=== PATIENT | female | born 1995 | race Caucasian/White ===

== ENCOUNTER → 2019-10-14 13:31 | Outpatient (BNVA) | payer MEDICAID, SELFPAY | PROVIDERS: Visit Provider Obstetrics & Gynecology | DX: Z32.01 Encounter for pregnancy test, result positive (principal) | CPT/HCPCS: 81025 ==

== ENCOUNTER → 2019-10-16 13:53 | Outpatient (BNVA) | payer MEDICAID, SELFPAY | PROVIDERS: Referring Provider Obstetrics & Gynecology; Visit Provider Obstetrics & Gynecology | DX: Z32.01 Encounter for pregnancy test, result positive (principal) | CPT/HCPCS: 84702 ==

== ENCOUNTER → 2019-10-21 14:28 | Outpatient (BNVA) | payer MEDICAID, SELFPAY | PROVIDERS: Referring Provider Obstetrics & Gynecology; Visit Provider Obstetrics & Gynecology | DX: Z34.01 Encounter for supervision of normal first pregnancy, first trimester (principal) | CPT/HCPCS: 76817 ==

== ENCOUNTER → 2019-11-07 10:26 | Outpatient (BNVA) | payer MEDICAID, SELFPAY | PROVIDERS: Visit Provider Nurse Practitioner Women's Health | DX: O99.211 Obesity complicating pregnancy, first trimester (principal); Z78.9 Other specified health status; Z3A.08 8 weeks gestation of pregnancy | CPT/HCPCS: 81003 ==

== ENCOUNTER → 2019-11-13 10:41 | Outpatient (BNVA) | payer MEDICAID, SELFPAY | PROVIDERS: Referring Provider Obstetrics & Gynecology; Visit Provider Obstetrics & Gynecology | DX: N39.0 Urinary tract infection, site not specified (principal) | CPT/HCPCS: 81003; 87086 ==

== ENCOUNTER → 2019-11-17 12:59 | Outpatient (BNVA) | payer MEDICAID, SELFPAY | PROVIDERS: Visit Provider Obstetrics & Gynecology | DX: O99.210 Obesity complicating pregnancy, unspecified trimester (principal) | CPT/HCPCS: 80307; 81003; 82950; 85027; 86592; 86762; 86803; 86850; 86900; 87086; 87340; 87806 ==

== ENCOUNTER → 2019-11-21 08:13 | Outpatient (BNVA) | payer MEDICAID, SELFPAY | PROVIDERS: Referring Provider Obstetrics & Gynecology; Visit Provider Obstetrics & Gynecology | DX: R73.09 Other abnormal glucose (principal) | CPT/HCPCS: 82951; 82952 ==

== ENCOUNTER → 2019-12-05 08:37 | Outpatient (BNVA) | payer MEDICAID, SELFPAY | PROVIDERS: Visit Provider Obstetrics & Gynecology | DX: O23.591 Infection of other part of genital tract in pregnancy, first trimester (principal); B96.89 Other specified bacterial agents as the cause of diseases classified elsewhere; Z3A.12 12 weeks gestation of pregnancy | CPT/HCPCS: 81000; 87491; 87591 ==

== ENCOUNTER → 2019-12-10 14:00 | Outpatient (BNVA) | payer MEDICAID, SELFPAY | PROVIDERS: Visit Provider Obstetrics & Gynecology | DX: A53.0 Latent syphilis, unspecified as early or late (principal) | CPT/HCPCS: 86592 ==

== ENCOUNTER → 2019-12-30 10:20 | Outpatient (BNVA) | payer MEDICAID, SELFPAY | PROVIDERS: Visit Provider Obstetrics & Gynecology | DX: O99.612 Diseases of the digestive system complicating pregnancy, second trimester | CPT/HCPCS: 81000 ==

== ENCOUNTER → 2020-01-14 13:35 | Outpatient (BNVA) | payer MEDICAID, SELFPAY | PROVIDERS: Visit Provider Obstetrics & Gynecology | DX: Z34.90 Encounter for supervision of normal pregnancy, unspecified, unspecified trimester (principal) | CPT/HCPCS: 80053; 81000 ==

== ENCOUNTER → 2020-01-29 10:56 | Outpatient (BNVA) | payer MEDICAID, SELFPAY | PROVIDERS: PCP Registered Nurse; Visit Provider Obstetrics & Gynecology | DX: Z36.89 Encounter for other specified antenatal screening (principal) | CPT/HCPCS: 76805 ==

== ENCOUNTER → 2020-02-06 08:32 | Outpatient (BNVA) | payer MEDICAID, SELFPAY | PROVIDERS: PCP Registered Nurse; Visit Provider Obstetrics & Gynecology | DX: Z34.90 Encounter for supervision of normal pregnancy, unspecified, unspecified trimester (principal) | CPT/HCPCS: 81000 ==

== ENCOUNTER → 2020-02-24 11:13 | Outpatient (BNVA) | payer MEDICAID, SELFPAY | PROVIDERS: PCP Registered Nurse; Visit Provider Obstetrics & Gynecology | DX: R10.2 Pelvic and perineal pain (principal) | CPT/HCPCS: 80053; 81000 ==

== ENCOUNTER → 2020-02-26 10:31 | Outpatient (BNVA) | payer MEDICAID, SELFPAY | PROVIDERS: PCP Registered Nurse; Visit Provider Obstetrics & Gynecology | DX: Z34.82 Encounter for supervision of other normal pregnancy, second trimester (principal) | CPT/HCPCS: 81000 ==

== ENCOUNTER → 2020-03-31 08:09 | Outpatient (BNVA) | payer MEDICAID, SELFPAY | PROVIDERS: PCP Registered Nurse; Visit Provider Obstetrics & Gynecology | DX: O26.891 Other specified pregnancy related conditions, first trimester (principal); Z67.91 Unspecified blood type, Rh negative; A53.0 Latent syphilis, unspecified as early or late; R73.09 Other abnormal glucose | CPT/HCPCS: 81000; 82951; 82952; 86592; 86780; 86850 ==

== ENCOUNTER → 2020-04-13 15:30 | Outpatient (BNVA) | payer MEDICAID, SELFPAY | PROVIDERS: PCP Registered Nurse; Visit Provider Nurse Practitioner Women's Health | DX: O99.519 Diseases of the respiratory system complicating pregnancy, unspecified trimester (principal); J45.909 Unspecified asthma, uncomplicated; O26.891 Other specified pregnancy related conditions, first trimester; Z67.91 Unspecified blood type, Rh negative; A53.0 Latent syphilis, unspecified as early or late; O99.213 Obesity complicating pregnancy, third trimester; Z3A.31 31 weeks gestation of pregnancy | CPT/HCPCS: 81000; 85027 ==

== ENCOUNTER 2020-04-23 15:08 | Outpatient (CLI) | payer MEDICAID, SELFPAY ==
[2020-04-23 15:22] VITALS: BP 125/73; PULSE 81
[2020-04-23 15:29] VITALS: RESP 16; TEMP 36.7
[2020-04-23 15:30] VITALS: BMI 36.8
[2020-04-23 16:29] VITALS: BP 129/70; PULSE 80
[2020-04-23 16:55] VITALS: BP 129/70; PULSE 80
== END 2020-04-23 16:55 | disposition home or self-care (01) ==
LOC: OPOB 15:14 → OBGYN 15:14
PROVIDERS: PCP Registered Nurse; Visit Provider Obstetrics & Gynecology
DX: O26.893 Other specified pregnancy related conditions, third trimester (principal); Z3A.32 32 weeks gestation of pregnancy; R10.2 Pelvic and perineal pain
CPT/HCPCS: 59025; 81000; 99211

== ENCOUNTER 2020-04-27 12:40 | Outpatient (CLI) | payer MEDICAID, SELFPAY ==
[2020-04-27 12:40] VITALS: BMI 35.9
[2020-04-27 13:00] VITALS: BP 114/65; PULSE 81
[2020-04-27 13:20] VITALS: RESP 18; TEMP 36.7
[2020-04-27 13:30] VITALS: BP 0/0
[2020-04-27 13:31] VITALS: BP 92/77; PULSE 91
[2020-04-27 14:30] VITALS: BP 110/71; PULSE 88
[2020-04-27 15:00] VITALS: BP 99/75; PULSE 86
--- NOTE | 2020-04-27 15:19 | P.PCN_ITS ---
Procedure/Consent Procedure Narrative: [place]STRESS TEST: [place] [facility] [place] Indication: 25-year-old 4 para 3-0-0-3 at 33 weeks and 0 days, abdominal pain Date and time of test: 04/27/2020, 2:40 PM Baseline: 135 Variability: Moderate Accelerations: Accelerations present Decelerations: No decelerations Tocometry: No contractions INTERPRETATION: NST reactive, continue kick counts
== END 2020-04-27 15:15 | disposition home or self-care (01) ==
LOC: OPOB 12:50 → OBGYN 12:51
PROVIDERS: PCP Registered Nurse; Visit Provider Obstetrics & Gynecology
DX: O26.893 Other specified pregnancy related conditions, third trimester (principal); Z3A.33 33 weeks gestation of pregnancy; R10.9 Unspecified abdominal pain
CPT/HCPCS: 12345; 59025; 99211

== ENCOUNTER 2020-04-30 11:55 | Outpatient (CLI) | payer MEDICAID, SELFPAY ==
[2020-04-30 12:00] VITALS: BMI 37.0
[2020-04-30 12:40] VITALS: BMI 35.9
[2020-04-30 12:47] VITALS: BP 119/70; PULSE 90
[2020-04-30 13:17] VITALS: BP 90/46; PULSE 83
--- NOTE | 2020-04-30 13:40 | PC.NURSE ---
1340 PT STATES AND LOOKS LIKE SHE FEELS BETTER.
[2020-04-30 14:07] VITALS: BP 107/76; PULSE 93
[2020-04-30 15:00] VITALS: BP 107/76; PULSE 93
== END 2020-04-30 14:05 | disposition home or self-care (01) ==
LOC: OPOB 12:01 → OBGYN 12:02
PROVIDERS: PCP Registered Nurse; Visit Provider Obstetrics & Gynecology
DX: O26.893 Other specified pregnancy related conditions, third trimester (principal); Z3A.33 33 weeks gestation of pregnancy; R10.9 Unspecified abdominal pain
CPT/HCPCS: 99211

== ENCOUNTER → 2020-05-07 14:27 | Outpatient (BNVA) | payer MEDICAID, SELFPAY | PROVIDERS: PCP Registered Nurse; Visit Provider Obstetrics & Gynecology | DX: O99.213 Obesity complicating pregnancy, third trimester; O09.893 Supervision of other high risk pregnancies, third trimester; Z67.91 Unspecified blood type, Rh negative; Z3A.34 34 weeks gestation of pregnancy; J45.909 Unspecified asthma, uncomplicated; O09.213 Supervision of pregnancy with history of pre-term labor, third trimester | CPT/HCPCS: 81000 ==

== ENCOUNTER 2020-05-09 16:10 | Outpatient (CLI) | payer MEDICAID, SELFPAY ==
[2020-05-09] VITALS (9 sets, daily range): BP systolic 0–143; BP diastolic 0–81; PULSE 88–100; RESP 18; TEMP 36.9–37.1; BMI 37.5
--- NOTE | 2020-05-09 17:14 | US_ITS ---
WS: [id number] BIOPHYSICAL PROFILE HISTORY: decreased movement COMPARISON: 01/29/2020 Cardiac activity: 138 bpm. Cervix: Not visualized. Placenta: Anterior, no previa or abruption. Placenta grade: 1 Parameters are as follows: Breathin Movement: 2 Tone: 2 Fluid volume: 2 Largest vertical pocket of amniotic fluid 4.7 cm. US/US OB BPP wo NST 24451 IMPRESSION: 1. Biophysical profile score: 8/8. 2. Largest vertical pocket of amniotic fluid 4.7 cm.
[2020-05-09 17:38] LABS: Actim Prom Negative
== END 2020-05-09 18:38 | disposition home or self-care (01) ==
LOC: OPOB 16:27 → OBGYN 16:28
PROVIDERS: PCP Registered Nurse; Visit Provider Obstetrics & Gynecology
DX: O26.899 Other specified pregnancy related conditions, unspecified trimester (principal); Z3A.00 Weeks of gestation of pregnancy not specified; O36.8190 Decreased fetal movements, unspecified trimester, not applicable or unspecified
CPT/HCPCS: 59025; 76819; 83986; 84112; 99211

== ENCOUNTER → 2020-05-21 15:04 | Outpatient (BNVA) | payer MEDICAID, SELFPAY | PROVIDERS: PCP Registered Nurse; Visit Provider Obstetrics & Gynecology | DX: O99.213 Obesity complicating pregnancy, third trimester (principal); O09.893 Supervision of other high risk pregnancies, third trimester; Z67.91 Unspecified blood type, Rh negative; Z3A.36 36 weeks gestation of pregnancy | CPT/HCPCS: 81000; 87081 ==

== ENCOUNTER → 2020-05-28 14:22 | Outpatient (BNVA) | payer MEDICAID, SELFPAY | PROVIDERS: PCP Registered Nurse; Visit Provider Obstetrics & Gynecology | DX: Z34.83 Encounter for supervision of other normal pregnancy, third trimester (principal) | CPT/HCPCS: 81000 ==

== ENCOUNTER → 2020-05-31 15:12 | Outpatient (BNVA) | payer MEDICAID, SELFPAY | PROVIDERS: PCP Registered Nurse; Visit Provider Registered Nurse | DX: R09.82 Postnasal drip (principal); J02.9 Acute pharyngitis, unspecified | CPT/HCPCS: 87880 ==

== ENCOUNTER → 2020-06-02 14:54 | Outpatient (BNVA) | payer MEDICAID, SELFPAY | PROVIDERS: PCP Registered Nurse; Visit Provider Obstetrics & Gynecology | DX: Z34.83 Encounter for supervision of other normal pregnancy, third trimester (principal) | CPT/HCPCS: 80053; 81000 ==

== ENCOUNTER 2020-06-05 17:30 | Outpatient (CLI) | payer MEDICAID, SELFPAY ==
[2020-06-05 17:55] VITALS: BP 138/81; PULSE 100
[2020-06-05 17:56] VITALS: TEMP 36.6
[2020-06-05 18:14] VITALS: BP 0/0
[2020-06-05 18:15] VITALS: BP 137/80; PULSE 93
[2020-06-05 18:17] VITALS: BMI 36.9
[2020-06-05 18:43] LABS: Nitrazine Paper, PH Negative
== END 2020-06-05 18:28 | disposition home or self-care (01) ==
LOC: OPOB 17:47 → OBGYN 18:25
PROVIDERS: PCP Registered Nurse; Visit Provider Obstetrics & Gynecology
DX: O26.899 Other specified pregnancy related conditions, unspecified trimester (principal); Z3A.00 Weeks of gestation of pregnancy not specified; N89.8 Other specified noninflammatory disorders of vagina
CPT/HCPCS: 59025; 83986; 99211

== ENCOUNTER → 2020-06-11 14:13 | Outpatient (BNVA) | payer MEDICAID, SELFPAY | PROVIDERS: PCP Registered Nurse; Visit Provider Obstetrics & Gynecology | DX: Z34.83 Encounter for supervision of other normal pregnancy, third trimester (principal) | CPT/HCPCS: 81000; 87635 ==

== ENCOUNTER 2020-06-13 11:36 | Inpatient (IN) | payer MEDICAID, SELFPAY ==
[2020-06-13] VITALS (59 sets, daily range): BP systolic 0–154; BP diastolic 0–92; PULSE 63–127; RESP 14–20; TEMP 36.6–37; O2SAT 97–100; BMI 38.3
[2020-06-13] MEDS: lactated ringers 1,000 ML 999 ML IV ×2 (12:42→13:46)
[2020-06-13 12:53] LABS: Basophils % 0.4 %; Eosinophils # 0.1 10^3/uL (0.0-0.8); Eosinophils % 0.8 %; Hematocrit 41.1 % (37.0-47.0); Hemoglobin 13.8 g/dL (11.5-15.3); Lymphocytes # 2.7 10^3/uL (0.8-4.8); Lymphocytes % 26.4 %; Mean Corpuscular HGB Conc 33.6 g/dL (30.0-36.0); Mean Corpuscular Hemoglobin 26.7 pg (28.0-34.0); Mean Corpuscular Volume 79.7 fL (81-99); Mean Platelet Volume 11.3 fL (7.4-10.4); Monocytes # 0.8 10^3/uL (0.2-0.9); Monocytes % 8.1 %; Neutrophils # 6.54 10^3/uL (1.8-7.7); Neutrophils % 63.9 %; Nucleated Red Blood Cells % 0 %; Platelet Count 267 10^3/cmm (130-400); Red Blood Count 5.16 10^6/uL (4.1-5.3); Red Cell Distribution Width 13.7 % (12.1-15.1); White Blood Count 10.2 10^3/uL (4.0-10.0)
--- NOTE | 2020-06-13 14:00 | P.ANESASSM_ITS ---
Pre-Anesthetic Assessment Pre-Anesthetic Assessment: Height/Weight: Height 1.65 m Weight 104.556 kg Pulse BP Pulse Ox 93 125/73 98 06/13/20 13:55 06/13/20 13:55 06/13/20 13:56 Preop Diagnosis: IUP labor pain Proposed Procedure: HAILEY Was Beta Autumn taken within 24 hours: N/A Last Intake: 11:00 Social: Social History: No alcohol and No tobacco Exam: Pre-Anes Outpt Exam: alert, oriented x 3, clear to auscultation bilaterally and regular rate & rhythm Airway: Submandibular: WNL Cervical ROM: WNL MP: 2 Dentition: Full History/ROS: No significant history except as noted and No significant complaints Pulmonary: Pulmonary: Asthma Comments: Not with CV/HEM: CV/HEM: None reported : : None reported Hepatic: Hepatic: None reported GI: GI: GERD Comments: Takes Zantac-controlled Metabolic: Metabolic: None reported Musc/skel: Musc/skel: None reported Neuropsych: Neuropsych: None reported Anesthetic Plan: ASA status: 2 Anesthesia: Regional (specify below) Other: HAILEY Risk of > 500 ml blood loss (7ml/kg in children): No Meds/Allergies Current Medications: Current Medications Generic Name Dose Route Start Last Admin Trade Name Freq PRN Reason Stop Dose Admin Lactated Ringer's 1,000 mls @ 999 m ls/hr 06/13/20 12:10 06/13/20 13:46 Lactated Ringers IV 999 mls/hr .Q1H1M PRN Administration Per L&D Rescitati on Protocol [facility] Anesthesia PFSH: Medical History Blood type B- History of hiatal hernia Obesity Oligomenorrhea Surgical History No pertinent past surgical history Family History Mother Cancer, Onset Age: 38 Uterine cancer Grandmother Cancer Maternal grandmother-- uterine cancer Grandfather Diabetes Maternal grandfather Hypertension Maternal grandfather Social History (Updated 06/02/20 @ 18:20 by Sinan Montes MD) Smoking and tobacco status: never smoked Alcohol intake: former Former alcohol use details: Social before Other details last substance use: Denies drug use Female Reproductive History: : 5 Data Anesthesia CBC & Chem 7: 06/13/20 12:28 Other Labs: Laboratory Results - last 48 hr 06/13/20 12:28 WBC 10.2 H RBC 5.16 Hgb 13.8 Hct 41.1 MCV 79.7 L MCH 26.7 L MCHC 33.6 RDW 13.7 Plt Count 267 MPV 11.3 H Neut % (Auto) 63.9 Lymph % (Auto) 26.4 [place] % (Auto) 8.1 Eos % (Auto) 0.8 Baso % (Auto) 0.4 Neut # (Auto) 6.54 Lymph # (Auto) 2.7 [place] # (Auto) 0.8 Eos # (Auto) 0.1 Baso # (Auto) 0.0 Nucleated RBC % (auto) 0 Nucleated RBCs # 0.0 Cardiac Studies: No Data to Display
--- NOTE | 2020-06-13 14:04 | P.ANES_ITS ---
Anesthesia Procedures Procedure/Date: 06/13/20 Epidural: Time Out Performed: Yes Consents Signed: Procedure Consent Consent: requested by attending/covering physician and from patient Lumbar Level: L3-L4 Epidural position: sitting Epidural procedure: sterile prep of area, 1% lidocaine to numb the area, 18 g needle, neg for paresthesia, test d ose given, 1.5% xylocaine 1:200k epi, 0.2% Ropivacaine bolus ml, placed PCEA, no systemic response, sterile dressing applied, L.U.D. no apparent complications and 0.2% Ropiavacaine @ mls/hr Additional Comments: SNEHA at 7 cm. Ropiv 0.2% 6 cc and Fentanyl 100 mcg bolus. comfortable. Ropiv 0.2% started at 13 cc/hour. Pt annie well
--- NOTE | 2020-06-13 17:32 | P.PCNOB_ITS ---
Delivery Note: Date of delivery: June 13, 2020 - PRE-DELIVERY DIAGNOSIS: 25-year-old 4 para 3-0-0-3 at 39 weeks and 5 days gestation Active labor GBS negative Obesity Rh- Asthma-mild intermittent POST-DELIVERY DIAGNOSIS: Vaginal delivery on 06/13/2020 PROCEDURE: Vaginal delivery on 06/13/2020 ANESTHESIA: Epidural anesthesia DELIVERING PHYSICIAN: Jared Andino FACOG PRE-DELIVERY COURSE: Ms. Torrez is a 25-year-old 4 para 3-0-0-3 at 39 weeks and 5 days gestation who presented to labor and delivery with questionable leaking of fluid and irregular contractions. Upon evaluation in labor and delivery nitrazine was negative and she was noted to be intact membranes however was 6 cm 80% and -2 station. tracing was category 1 and she had contractions every 6 to 10 minutes. Given that she was full-term with advanced cervical dilation decision was made to admit her in labor. She was uncomfortable and epidural was placed. After the epidural she was noted to be 7 to 8 cm, 80% and -2 station with the head well applied applied. Artificial rupture of membranes was performed with clear fluid at 2:37 PM. She made appropriate cervical change and was fully dilated at 4:45 PM. She was uncomfortable and ready to push. tracing category 1 thus far. DELIVERY NOTE: She was set up in lithotomy position and was pushing effectively. She was noted to be +3 station and continued pushing well. The head delivered in UZIEL position, no nuchal cord was present. The shoulders and rest of the body followed with her next push. The baby's mouth and nose were suctioned and the baby was placed on the mother's belly. Once cord pulsations stopped the cord was clamped and cut. The placenta delivered spontaneously intact with membranes and was discarded. The fundus was noted to be firm and well contracted. The vagina and cervix were inspected and no cervical or sulcal lacerations were noted. The perineum was intact except for a small right labial abrasion which was hemostatic and not repaired. Baby girl, Kristine born at 5:02 PM on 06/13/2020 with 9/9, weighing 7 pounds 15 ounces, 3600 g, 19-3/4 inches long. Placenta was delivered spontaneously intact with membranes at 5:06 PM. Cotyledons were intact , centrally inserted umbilical cord with 3 vessels noted. Estimated blood loss 150 mL. Complications-none, both baby and mother were left to recovery in a stable condition. Coding Level of Care Code Acute Jockey Room Custodian for Paulina Goodman
[2020-06-13] MEDS: lanolin oint 7 gm 1 APPLIC TOPICAL (20:02)
[2020-06-13] MEDS: docusate sodium 100 mg Capsule PO (20:03)
[2020-06-13] MEDS: ibuprofen 800 mg tablet PO (20:03)
[2020-06-13] MEDS: benzocaine-menthol 78 gm Canister 1 SPRAY TOPICAL (20:04)
[2020-06-14 01:10] VITALS: BP 129/72; PULSE 72; RESP 14; O2SAT 98
[2020-06-14 03:30] VITALS: BP 121/76; PULSE 87; RESP 16; TEMP 36.8; O2SAT 98
[2020-06-14 05:36] LABS: Hematocrit 39.4 % (37.0-47.0); Hemoglobin 12.7 g/dL (11.5-15.3); Mean Corpuscular HGB Conc 32.2 g/dL (30.0-36.0); Mean Corpuscular Hemoglobin 26.7 pg (28.0-34.0); Mean Corpuscular Volume 82.9 fL (81-99); Platelet Count 195 10^3/cmm (130-400); Red Blood Count 4.75 10^6/uL (4.1-5.3); Red Cell Distribution Width 13.8 % (12.1-15.1); White Blood Count 12.2 10^3/uL (4.0-10.0)
--- NOTE | 2020-06-14 08:21 | P.DS_ITS ---
Discharge Providers Date of Admission: 06/13/20 11:36 Date of Discharge: June 14, 2020 Attending Provider at Admission: Jared Triana MD Attending Provider at Discharge: Jared Triana MD Primary Care Provider: TYSHAWN Villagran Reason for Visit Reason for Visit: Abdominal pain Hospital Course Discharge Summary: PRE-DELIVERY DIAGNOSIS: 25-year-old 4 para 3-0-0-3 at 39 weeks and 5 days gestation Active labor GBS negative Obesity Rh- Asthma-mild intermittent POST-DELIVERY DIAGNOSIS: Vaginal delivery on 06/13/2020 PROCEDURE: Vaginal delivery on 06/13/2020 ANESTHESIA: Epidural anesthesia DELIVERING PHYSICIAN: Jared Andino FACOG PRE-DELIVERY COURSE: Ms. Torrez is a 25-year-old 4 para 3-0-0-3 at 39 weeks and 5 days gestation who presented to labor and delivery with questionable leaking of fluid and irregular contractions. Upon evaluation in labor and delivery nitrazine was negative and she was noted to be intact membranes however was 6 cm 80% and -2 station. tracing was category 1 and she had contractions every 6 to 10 minutes. Given that she was full-term with advanced cervical dilation decision was made to admit her in labor. She was uncomfortable and epidural was placed. After the epidural she was noted to be 7 to 8 cm, 80% and -2 station with the head well applied applied. Artificial rupture of membranes was performed with clear fluid at 2:37 PM. She made appropriate cervical change and was fully dilated at 4:45 PM. She was uncomfortable and ready to push. tracing category 1 thus far. DELIVERY NOTE: She was set up in lithotomy position and was pushing effectively. She was noted to be +3 station and continued pushing well. The head delivered in UZIEL posit ion, no nuchal cord was present. The shoulders and rest of the body followed with her next push. The baby's mouth and nose were suctioned and the baby was placed on the mother's belly. Once cord pulsations stopped the cord was clamped and cut. The placenta delivered spontaneously intact with membranes and was discarded. The fundus was noted to be firm and well contracted. The vagina and cervix were inspected and no cervical or sulcal lacerations were noted. The perineum was intact except for a small right labial abrasion which was hemostatic and not repaired. Baby girl, Kristine born at 5:02 PM on 06/13/2020 with 9/9, weighing 7 pounds 15 ounces, 3600 g, 19-3/4 inches long. Placenta was delivered spontaneously intact with membranes at 5:06 PM. Cotyledons were intact , centrally inserted umbilical cord with 3 vessels noted. Estimated blood loss 150 mL. Complications-none, both baby and mother were left to recovery in a stable condition. HOSPITAL COURSE: She underwent an uncomplicated vaginal delivery on 06/13/2020. She did well on day 0 and was ambulating well, tolerating regular diet, voiding freely, passing flatus. She was breast-feeding without difficulty and bonding well with her daughter. Pain was well-controlled with by mouth pain medication. She denied nausea, vomiting, fever, chills, shortness of breath, leg pain. She had moderate vaginal bleeding. On day #1 she continued to do well with stable vital signs and stable hemoglobin at 12.7. She was discharged home on day 1 in a stable condition, as she desired early discharge. W arning signs for endometritis, mastitis, DVT/PE were reviewed with her. Post delivery activity restrictions were also reviewed with her at all her questions were answered to her satisfaction. Plans on using natural methods of contraception at this time. EXAM AT DISCHARGE: Gen.: No acute distress Heart: S1-S2 heard, regular rate and rhythm Lungs: Clear to auscultation bilaterally Abdomen: Soft, fundus firm below umbilicus, Legs: No calf tenderness, trace bilateral pitting pedal edema. CONDITION AT DISCHARGE: Stable Physical Exam Urinary Catheter Management^: Clement: Cath Placed During This Visit: yes, but has since been removed by the nurse Reason for Continuing Indwelling Catheter: Perioperative Use in Selected Surgeries Urinary Catheter Date of Insertion: 06/13/20 Urinary Catheter Time of Insertion: 14:15 Date Urinary Catheter Removed: 06/13/20 Time Urinary Catheter Discontinued: 16:55 Discharge Data Data Completed and Pending: Labs from last 24 hours 06/14/20 06/13/20 05:15 12:28 WBC 12.2 H 10.2 H RBC 4.75 5.16 Hgb 12.7 13.8 Hct 39.4 41.1 MCV 82.9 79.7 L MCH 26.7 L 26.7 L MCHC 32.2 33.6 RDW 13.8 13.7 Plt Count 195 267 MPV 11.0 H 11.3 H Neut % (Auto) 63.9 Lymph % (Auto) 26.4 [place] % (Auto) 8.1 Eos % (Auto) 0.8 Baso % (Auto) 0.4 Neut # (Auto) 6.54 Lymph # (Auto) 2.7 [place] # (Auto) 0.8 Eos # (Auto) 0.1 Baso # (Auto) 0.0 Nucleated RBC % (a uto) 0 Nucleated RBCs # 0.0 Vitals: Last Vital Signs Temp 98.2 F 06/14/20 03:30 Pulse 87 06/14/20 03:30 Resp 16 06/14/20 03:30 BP 121/76 06/14/20 03:30 Pulse Ox 98 06/14/20 03:30 Discharge Plan Discharge Patient Disposition: Home Condition: Stable Prescriptions: New ibuprofen 800 mg tablet 800 mg PO Q8H Qty: 30 RF: 0 docusate sodium 100 mg Capsule 100 mg PO BID PRN (Reason: constipation) Qty: 30 RF: 0 Continued famotidine 20 mg tablet 20 mg PO BID 30 Days Qty: 60 RF: 8 prenat.vits,latasha,[id number]-flcj-otahw Tablet 1 tab PO DAILY RF: 0 Discharge Orders: Discharge Order (Routine); Ordered 06/14/20 Ordered By: Jared Triana Referrals: Sinan Montes MD [Physician] - (* Please call first thing tomorrow morning to make your 6-week visit with Dr. Montes) Discharge Diet: Usual diet Patient Instructions: OB Discharge Report, OB Food/Drug Interaction Guide, OB Home Care Instructions, OB Care at Home, OB Home Care, OB Proud Parent Packet, OB Vaginal Deliveries - [facility] Activity Restrictions/Additional Instructions: No heavy lifting for 6 weeks, pelvic rest for 6 weeks Discharge Attestations Time Spent in Discharge Care*: greater than 30 min Quality Metrics Clinical Quality Measures During this hospital stay, did patient experience: None Coding Level of Care Code Acute Hemming And Tacking Machine Operator for Paulina Goodman
[2020-06-14] MEDS: docusate sodium 100 mg Capsule PO (09:45)
[2020-06-14] MEDS: prenatal vitamin Capsule 1 CAP PO (09:45)
[2020-06-14] MEDS: ibuprofen 800 mg tablet PO ×2 (09:45→15:41)
[2020-06-14 09:48] VITALS: BP 114/73; PULSE 87; RESP 17; TEMP 36.6
[2020-06-14 15:45] VITALS: BP 117/76; PULSE 83; RESP 16
[2020-06-14 17:25] VITALS: BP 117/76; PULSE 83; RESP 16
== END 2020-06-14 17:50 | disposition home or self-care (01) | DRG 807 ==
LOC: OPOB 11:48 → OBGYN 11:48 → OPOB 12:13 → OBGYN 12:13
PROVIDERS: Admitting Provider Obstetrics & Gynecology; PCP Registered Nurse; Visit Provider Obstetrics & Gynecology
DX: O99.214 Obesity complicating childbirth (principal); Z37.0 Single live birth; Z3A.39 39 weeks gestation of pregnancy
CPT/HCPCS: 12345; 36415; 51702; 59025; 59409; 85025; 85027; 96374; 99211; J2795; J3010

== ENCOUNTER → 2021-01-28 10:30 | Outpatient (BNVA) | payer BC, MEDICAID, SELFPAY | PROVIDERS: PCP Registered Nurse; Visit Provider Registered Nurse | DX: N89.8 Other specified noninflammatory disorders of vagina (principal); K59.09 Other constipation | CPT/HCPCS: 81000; 87070; 87205; 87491; 87591; 87661; 88175 ==

== ENCOUNTER → 2021-03-16 08:06 | Outpatient (BNVA) | payer BC, MEDICAID, SELFPAY | PROVIDERS: PCP Registered Nurse; Visit Provider Registered Nurse | DX: Z20.822 Contact with and (suspected) exposure to COVID-19 (principal) | CPT/HCPCS: 87635 ==

== ENCOUNTER → 2021-04-05 11:49 | Outpatient (BNVA) | payer BC, MEDICAID, SELFPAY | PROVIDERS: PCP Registered Nurse; Visit Provider Registered Nurse | DX: B34.9 Viral infection, unspecified (principal); Z20.822 Contact with and (suspected) exposure to COVID-19 | CPT/HCPCS: 87635 ==

== ENCOUNTER → 2021-04-21 08:15 | Outpatient (BNVA) | payer BC, MEDICAID, SELFPAY | PROVIDERS: PCP Registered Nurse; Visit Provider Registered Nurse | DX: O99.345 Other mental disorders complicating the puerperium (principal); F53.0 Postpartum depression; J01.41 Acute recurrent pansinusitis | CPT/HCPCS: 80053; 82607; 84443; 85025 ==

== ENCOUNTER → 2021-05-10 09:44 | Outpatient (BNVA) | payer BC, MEDICAID, SELFPAY | PROVIDERS: PCP Registered Nurse; Visit Provider Registered Nurse | DX: Z11.52 Encounter for screening for COVID-19 (principal); Z20.822 Contact with and (suspected) exposure to COVID-19 | CPT/HCPCS: 87635 ==

== ENCOUNTER → 2021-06-06 13:56 | Outpatient (BNVA) | payer BC, MEDICAID, SELFPAY | PROVIDERS: PCP Registered Nurse; Visit Provider Registered Nurse | DX: J02.9 Acute pharyngitis, unspecified (principal); J35.01 Chronic tonsillitis | CPT/HCPCS: 87880 ==

== ENCOUNTER → 2021-08-09 10:05 | Outpatient (BNVA) | payer BC, MEDICAID, SELFPAY | PROVIDERS: PCP Registered Nurse; Visit Provider Registered Nurse | DX: J35.01 Chronic tonsillitis (principal); N91.2 Amenorrhea, unspecified | CPT/HCPCS: 87880 ==

== ENCOUNTER → 2021-08-23 10:39 | Outpatient (BNVA) | payer BC, MEDICAID, SELFPAY | PROVIDERS: PCP Registered Nurse; Visit Provider Registered Nurse | DX: J01.40 Acute pansinusitis, unspecified (principal); R50.9 Fever, unspecified | CPT/HCPCS: 87635 ==

== ENCOUNTER → 2021-09-29 08:33 | Outpatient (BNVA) | payer BC, MEDICAID, SELFPAY | PROVIDERS: PCP Registered Nurse; Visit Provider Registered Nurse | DX: Z20.822 Contact with and (suspected) exposure to COVID-19 (principal); Z11.52 Encounter for screening for COVID-19 | CPT/HCPCS: 87635 ==

== ENCOUNTER 2022-09-21 14:49 | Outpatient (CLI) | payer BC, MEDICAID, SELFPAY ==
--- NOTE | 2022-09-21 | US_ITS ---
WS: [id number] LIMITED OBSTETRICAL ULTRASOUND HISTORY: DATING COMPARISON: None available. Presentation: Breech. Cervix: Closed and normal length. Placenta: Anterior, no previa or abruption. Grade: 0 HEART: FHR of 147 BPM. measurements: BPD = 3.0 cm = 15w3d HC = 11.0 cm = 15w2d AC = 9.3 cm = 15w3d FL = 1.8 cm = 15w3d Normal amniotic fluid. EFW: 124 g; %. AGA by ultrasound: 15w3d PATRICK by ultrasound: 03/12/2023 US/US OB >= 14 weeks fetus [id number] IMPRESSION: 1. Single intrauterine gestation of 15 weeks 3 days with an EDC of 03/12/2023. 2. Normal cardiac activity.
== END 2022-09-21 14:50 | disposition home or self-care (01) ==
LOC: RAD 14:52
PROVIDERS: PCP Registered Nurse; Visit Provider Family Medicine
DX: Z36.87 Encounter for antenatal screening for uncertain dates (principal); Z3A.15 15 weeks gestation of pregnancy
CPT/HCPCS: 76805

== ENCOUNTER 2022-10-24 09:04 | Outpatient (CLI) | payer BC, MEDICAID, SELFPAY ==
--- NOTE | 2022-10-24 09:11 | US_ITS ---
WS: [id number] OBSTETRICAL ULTRASOUND COMPLETE HISTORY: MULTIGRAVIDA 2ND TRIMESTER COMPARISON: 09/21/2022 Single intrauterine gestation in breech presentation. Cervix is Closed and normal length. Cervical length is 3.5 cm. Normal amount of amniotic fluid surrounds the fetus. Placenta: Anterior, no previa or abruption. Placenta grade 1 Heart: 133 BPM. 4 chamber heart not adequately visualized. No outflow tracks submitted. Anatomy: Intracranial structures and spine are normal. kidneys, stomach and urinary bladd er are unremarkable. Abdominal wall, three-vessel cord and cord insertion site are normal. 4 extremities are present. profile: Unremarkable. Gender: Female. measurements: BPD = 4.5 cm = 19w4d; HC = 17.1 cm = 19w5d; AC = 15.1 cm = 20w2d; FL = 3.2 cm = 19w6d; EFW: 330 g. Not available. Biometry is internally concordant. AGA by ultrasound: 19w6d PATRICK by ultrasound: 03/14/2023 US/US OB >= 14 weeks fetus [id number] IMPRESSION: 1. Single intrauterine gestation of 19w6d with an PATRICK of 03/14/2023. 2. Very limited evaluation of the heart including the 4 chambers and out flow tracts. Recommend follow-up in 2-3 weeks. The remaining anatomy is negativ e.
== END 2022-10-24 09:05 | disposition home or self-care (01) ==
LOC: RAD 09:07
PROVIDERS: PCP Registered Nurse; Visit Provider Family Medicine
DX: Z34.82 Encounter for supervision of other normal pregnancy, second trimester (principal); Z3A.19 19 weeks gestation of pregnancy
CPT/HCPCS: 76805

== ENCOUNTER 2022-11-05 08:42 | Emergency (ER) | payer BC, MEDICAID, SELFPAY ==
[2022-11-05] VITALS (7 sets, daily range): BP systolic 105–115; BP diastolic 65–78; PULSE 97–120; RESP 16–18; TEMP 36.8; O2SAT 98–99; BMI 31.9
--- NOTE | 2022-11-05 09:04 | ED_ITS ---
HPI - URI/Sore Throat General: Chief Complaint: Upper Respiratory Infection Stated Complaint: sore throat/cough/SOB Time Seen by Provider: 11/05/22 08:45 Source: patient Mode of arrival: ambulatory Limitations: no limitations History of Present Illness: Patient presents to the emergency department today for evaluation and treatment of worsening upper respiratory symptoms over the last 3 days. Patient states she felt like she had some onset of generalized/centralized chest congestion which has progressed into more difficulty catching her breath and worsening cough. She reports minimally productive cough but feels like she still has congestion in her chest. Patient also complains of a significant sore throat with difficulty now talking and increased pain with swallowing. She does admit this has kept her from being able to tolerate food and fluids as well. Patient reports bilateral ear pain. She denies any recorded fevers but reports chills last night causing her to shake and chattering her teeth. No others are similarly ill at home other than some allergy symptoms. Patient is currently 21 weeks . She has a history of asthma but reports she needs refills on her inhalers. Chart review shows she has a history of paroxysmal tachycardia and has propranolol listed on her medications list but states her OBGYN told her not to take it. However, patient reports she has been having an increased heart rate for the last several days to a week. 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 indicates she is running herself ragged and has not been taking the time to cut back and rest. Associated symptoms: Reports nasal congestion Review of Systems General: Reports: 10 or more systems reviewed and unremarkable except in HPI and below ENMT: Reports: throat pain, odynophagia, hoarseness and nasal congestion Resp: Reports: dyspnea, non-productive cough, wheezing (hx of asthma) and chest congestion PFS ED PFSH: Medical History Asthma Blood type B- History of hiatal hernia Obesity Oligomenorrhea Tonsillar hypertrophy Surgical History No pertinent past surgical history Family History Mother Cancer, Onset Age: 38 Uterine cancer Grandmother Cancer Maternal grandmother-- uterine cancer Grandfather Diabetes Maternal grandfather Hypertension Maternal grandfather Social History Smoking and tobacco status: never smoked Alcohol intake: former Former alcohol use details: Social before Other details last substance use: Denies drug use Adopted: No Caregiver/support person: No Lives independently: No Household members: children service: No Current occupational status: employed Sexually active: Yes Current gender identity: Female Physical Exam Const: COMMON NORMALS: no acute distress (Appears incredibly fatigued), patient oriented x3 and alert HENMT: OTHER: TMs are nonerythematous bilaterally but there is some bulging and fluid present behind the eardrums. Pharynx is notably erythematous. Tonsils surgically absent. No signs of exudate or petechial rash on soft palate. Uvula is midline without unilateral throat swelling. Airway is patent. Patient voice is hoarse. Eye: COMMON NORMALS: Equal, round and reactive pupils present, EOMs intact bilaterally and conjunctivae normal CONJUNCTIVA: Yes conjunctivae normal PUPIL: Yes Equal, round and reactive pupils present Neck/C-Spine: COMMON NORMALS: no JVD Lymph: LYMPHATIC: lymphadenopathy (Anterior cervical-right more than left.) Resp: COMMON NORMALS: normal respiratory effort, No retractions and No use of accessory muscles; negative for clear to auscultation bilaterally (Diminished lung sounds bilaterally) AUSCULTATION: not clear to auscultation bilaterally (Diminished lung sounds bilaterally) Cardio: COMMON NORMALS: no JVD; negative for regular rate (Mild tachycardia) RATE: abnormal rate (Mild tachycardia) : COMMON NORMALS: Yes no CVA tenderness BLADDER/KIDNEY EXAM: Yes no CVA tenderness Back/Pelvis: COMMON NORMALS: no CVA tenderness, thoracic and lumbar spine normal to inspection and thoraco-lumbar ROM normal Extremity: COMMON NORMALS: normal to inspection, full ROM and no pedal edema Neuro: COMMON NORMALS: patient oriented x3 SENSORIUM/ORIENTATION: Yes alert Skin: COMMON NORMALS: no rashes or lesions noted and turgor normal GENERAL SKIN EXAM: no rashes or lesions noted and turgor normal Course Vital Signs: Vital signs: Vital Signs Temperature 98.2 F 11/05/22 08:44 Pulse Rate 120 H 11/05/22 11:33 Respiratory Rate 18 11/05/22 11:33 Blood Pressure 110/73 11/05/22 12:17 Pulse Oximetry 98 11/05/22 12:17 Oxygen Delivery Me thod 11/05/22 11:33 MDM - URI/Sore Throat Medical Decision Making Patient presented today with various upper respiratory symptoms over the last several days. Patient presents with tachycardia but has known tachycardia and is not currently on her rate control medication. She also admitted she was not using/out of her asthma medications. She tested negative for COVID, influenza, and strep today. Patient was also concerned about the potential for protein in her urine as she states OB has not checked her urine ever. Urinalysis showed no protein but is concerning for potential urinary tract infection-there is some contamination noted. We will culture the urine over the next 48 hours but, given her status as did recommend antibiotic initiation today for generalized coverage. Given her other upper respiratory symptoms we we will go with amoxicillin for full coverage. After talking to Dr. Dahl, he recommended a low-dose, short course of prednisone to help with the patient's other symptoms. Explained her she needs to increase her clear fluid intake and rest. Patient was given a note for both her employer and her school excusing her for the next couple of days to allow her to rest and hydrate. Patient appeared to have noticeable improvement after breathing treatments though she still states she feels tight in her chest. Patient is sitting upright in the bed, is smiling, and is speaking more quickly and shows less signs of discomfort. Patient was given strict return precautions for change or worsening in condition. She is to keep all upcoming appointments with CERTIFIED ENERGY MANAGER for continued monitoring of her . Differential Diagnosis Likely upper respiratory infection, otitis media, sinusitis, viral infection, bronchitis and influenza Lab Data Laboratory Results Urine Color Yellow (Yellow) 11/05/22 09:25 Urine Appearance Hazy (CLEAR) A 11/05/22 09:25 Urine pH 5 (5-7) 11/05/22 09:25 Ur Specific [place]ham 1.020 (1.005-1.030) 11/05/22 09:25 Urine Protein Neg (Negative) 11/05/22 09:25 Urine Glucose (UA) Norm (Normal) 11/05/22 09:25 Urine Ketones 1+ (Negative) H 11/05/22 09:25 Urine Blood Neg (Negative) 11/05/22 09:25 Urine Nitrate Negative (Negative) 11/05/22 09:25 Urine Bilirubin 1+ (Negative) H 11/05/22 09:25 Urine Urobilinogen 4 mg/dL (Negative) H 11/05/22 09:25 Ur Leukocyte Esterase 2+ (Negative) H 11/05/22 09:25 Urine RBC None /hpf (0-2) 11/05/22 09:25 Urine WBC 15-25 /hpf (0-5) H 11/05/22 09:25 Ur Squamous Epith Cells 25-40 /hpf (0-5) H 11/05/22 09:25 Ur Transition Epith Cell 5-10 /hpf 11/05/22 09:25 Amorphous Sediment Not Reportable 11/05/22 09:25 Urine Bacteria 2+ /hpf (NONE) H 11/05/22 09:25 Urine Mucus 2+ /hpf 11/05/22 09:25 Influenza Type A Ag negative (Negative) 11/05/22 09:05 Influenza Type B Ag negative (Negative) 11/05/22 09:05 SARS-CoV-2 Ag (Rapid) negative (Negative) 11/05/22 09:05 Group A Strep Rapid Negative (Negative) 11/05/22 09:05 Discharge Plan Discharge Patient Disposition: Home Clinical Impression: URI (upper respiratory infection), Sinus tachycardia, UTI (urinary tract infection) Condition: Stable Prescriptions: New Ventolin HFA 90 mcg/actuation HFA aerosol inhaler 2 inh inhalation Q4H PRN (Reason: shortness of breath or wheezing) Qty: 8.5 0RF prednisone 20 mg tablet 20 mg PO DAILY 5 Days Qty: 5 0RF amoxicillin 500 mg tablet 500 mg PO BID 7 Days Qty: 14 0RF No Action montelukast [Singulair] 10 mg tablet 10 mg PO DAILY Qty: 90 0RF buspirone 10 mg tablet 10 mg PO BID PRN (Reason: anxiety) 30 Days Qty: 45 0RF Flovent HFA 220 mcg/actuation HFA aerosol inhaler See Rx Instructions .ROUTE .COMPLEX Qty: 12 5RF Dose Instruction: INHALE 1 PUFF BY MOUTH TWICE DAILY Rx Instructions: INHALE 1 PUFF BY MOUTH TWICE DAILY albuterol sulfate [ProAir HFA] 90 mcg/actuation HFA aerosol inhaler 2 puff INHALATION Q6H PRN (Reason: shortness of breath or wheezing) Qty: 6.7 5RF propranolol 40 mg tablet 40 mg PO BEDTIME 30 Days Qty: 30 0RF diclofenac sodium [Voltaren Arthritis Pain] 1 % gel 2 g topical QID Qty: 100 0RF Rx Instructions: apply to area of pain Discharge Orders: Discharge ED (Routine); Ordered 11/05/22 Ordered By: Ania Gar Referrals: Ladonna Mae, TYSHAWN [Primary Care Provider] - Discharge Diet: Usual diet Discharge Activity: Increase activity as tolerated Patient Instructions: Upper Respiratory Infection (ED) Activity Restrictions/Additional Instructions: Rapid strep, influenza, COVID test are all negative today. you received 2 breathing treatments here in the emergency department as well as a bag of fluids. We have refilled your albuterol inhaler for you to use for the next several days while you are still fighting your viral illness. I encourage you to continue pushing her fluids. Urinalysis showed no signs of any protein but, there is concerns for potential infection however, your Bessman was somewhat contaminated. We will go ahead and initiate treatment with antibiotics which will also give us some upper respiratory coverage at the same time while we wait for culture and sensitivities to run in the lab over the next 48 hours. Your urinalysis does show that you could significantly benefit from increasing your fluid intake. Have given you a couple of days off both work and school in an effort to help allow you to rest and hydrate. It is recommended that you speak to your CERTIFIED ENERGY MANAGER regarding changing of your beta-mary for your increased heart rate. Stand Alone Forms: Work/School Release Coding Level of Care Code ED College Sports Assistant for Paulina Goodman
[2022-11-05] MEDS: sodium chloride 0.9% 1,000 ML 999 ML IV (09:36)
[2022-11-05] MEDS: levalbuterol 1.25 mg/3 mL Neb INHALATION ×2 (09:40→10:55)
[2022-11-05 09:45] LABS: Influenza A by IFA negative (Negative); Influenza B by IFA negative (Negative)
[2022-11-05 09:47] LABS: SARS Covid-2 Antigen negative (Negative)
[2022-11-05 09:52] LABS: Rapid Strep A Test Negative (Negative)
[2022-11-05 12:02] LABS: Add Urine Microscopic? YES; Bilirubin Urine 1+ (Negative); Blood Urine Neg (Negative); Glucose Urine UA Norm (Normal); Ketones Urine 1+ (Negative); Leukocyte Esterase Urine 2+ (Negative); Nitrate Urine Negative (Negative); Protein Urine Neg (Negative); Urine Appearance Hazy (CLEAR); Urine Color Yellow (Yellow); Urobilinogen Urine 4 mg/dL (Negative); pH Urine 5 (5-7)
[2022-11-05 12:04] LABS: Bacteria Urine 2+ /hpf; Squamous Epithelial Cell Urine 25-40 /hpf (0-5); WBC Urine 15-25 /hpf (0-5)
[2022-11-05 12:05] LABS: Add Urine Culture? No; Mucus Urine 2+ /hpf
== END 2022-11-05 12:18 | disposition home or self-care (01) ==
PROVIDERS: Emergency Provider Physician Assistant; PCP Registered Nurse
DX: O99.512 Diseases of the respiratory system complicating pregnancy, second trimester (principal); O23.42 Unspecified infection of urinary tract in pregnancy, second trimester; N39.0 Urinary tract infection, site not specified; O99.412 Diseases of the circulatory system complicating pregnancy, second trimester; Z3A.21 21 weeks gestation of pregnancy; Z20.822 Contact with and (suspected) exposure to COVID-19
CPT/HCPCS: 81001; 87081; 87426; 87804; 87880; 94640; 96360; 99284; J7030; J7614

== ENCOUNTER → 2023-01-18 09:58 | Day surgery (SDC) | payer BC, MEDICAID, SELFPAY ==
[2023-01-18 10:23] VITALS: BP 128/77; PULSE 82; RESP 18; TEMP 36.2; O2SAT 95
[2023-01-18 11:32] VITALS: BP 128/77; PULSE 82; RESP 18; TEMP 36.2; O2SAT 95
--- NOTE | 2023-01-18 11:40 | PC.NURSE ---
Rhogam injection given as ordered.
== END ==
LOC: GILAB 10:01
PROVIDERS: PCP Registered Nurse; Visit Provider Family Medicine
DX: O36.0191 Maternal care for anti-D [Rh] antibodies, unspecified trimester, fetus 1 (principal); Z3A.33 33 weeks gestation of pregnancy
CPT/HCPCS: 36415; 86850; 86900; 90384; 96372

== ENCOUNTER 2023-01-24 20:54 | Outpatient (CLI) | payer BC, MEDICAID, SELFPAY ==
[2023-01-24] VITALS (8 sets, daily range): BP systolic 112–128; BP diastolic 63–80; PULSE 99–108; RESP 18; TEMP 36.9; BMI 35.5
[2023-01-24 21:32] LABS: Nitrazine Paper, PH Inconclusive
--- NOTE | 2023-01-24 21:35 | USR_ITS ---
PROCEDURE INFORMATION: Exam: US , Limited Exam date and time: 01/24/2023 10:23 PM Age: 27 years old Clinical indication: Lmp or gestational age (in weeks): 33w 2d; Antepartum complications; Other: Leaking clear fluid x 3 days. ; Patient HX: G5-p4-a0-l4; Additional info: Clear vaginal discharge, check marcus LABS AND CLINICAL REPORTS: Last menstrual period start date: 06/05/2022 Gestational age (Established): 33 w 2 d Estimated due date (Established): 03/12/2023 TECHNIQUE: Imaging protocol: Real-time ultrasound of the maternal uterus with image documentation. Exam focused on the clinical indication. COMPARISON: [place] [id number] 12/07/2022 1:56 PM FINDINGS: Gestation: Single intrauterine . heart rate: 120 bpm presentation: Cephalic Placenta: Anterior and Right placenta . Amniotic fluid index: MARCUS is 19.4 cm. MATERNAL: Cervix: Cervical length measures 3.6 cm and appears closed. US/US OB limited [id number] IMPRESSION: 1. Single live intrauterine . 2. Cervical length measures 3.6 cm and appears closed.
[2023-01-24 21:59] LABS: Basophils % 0.4 %; Eosinophils # 0.1 10^3/uL (0.0-0.8); Eosinophils % 1.1 %; Hematocrit 38.2 % (37.0-47.0); Hemoglobin 12.8 g/dL (11.5-15.3); Lymphocytes # 2.7 10^3/uL (0.8-4.8); Lymphocytes % 28.4 %; Mean Corpuscular HGB Conc 33.5 g/dL (30.0-36.0); Mean Corpuscular Hemoglobin 27.1 pg (28.0-34.0); Mean Corpuscular Volume 80.8 fl (81-99); Mean Platelet Volume 10.2 fL (7.4-10.4); Monocytes # 0.9 10^3/uL (0.2-0.9); Neutrophils # 5.83 10^3/uL (1.8-7.7); Neutrophils % 60.8 %; Nucleated Red Blood Cells % 0 %; Platelet Count 206 10^3/cmm (130-400); Red Blood Count 4.73 10^6/uL (4.1-5.3); Red Cell Distribution Width 13.8 % (12.1-15.1); White Blood Count 9.6 10^3/uL (4.0-10.0)
[2023-01-24 22:19] LABS: Add Urine Microscopic? NO; Charge for UA Resulting for Rev
[2023-01-24 22:50] LABS: Urine Creatinine 102 mg/dL (28-217); Urine Protein Random 7 mg/dL
[2023-01-24 22:51] LABS: Bilirubin Urine Neg (Negative); Blood Urine Neg (Negative); Glucose Urine UA 1+ (Normal); Ketones Urine 1+ (Negative); Leukocyte Esterase Urine Negative (Negative); Nitrate Urine Negative (Negative); Protein Urine Neg (Negative); Urine Appearance Clear (CLEAR); Urine Color Yellow (Yellow); Urobilinogen Urine 1 mg/dL (Negative); pH Urine 6 (5-7)
[2023-01-24 22:56] LABS: UPRO/UCREAT Ratio 0.07 mg/mg CR
[2023-01-24 23:19] LABS: Alanine Aminotransferase 9 U/L (0-33); Albumin Level 3.5 g/dL (3.5-5.2); Alkaline Phosphatase 158 U/L (35-105); Anion Gap 14.4 (5-19); Aspartate Amino Transferase 14 U/L (0-32); Blood Urea Nitrogen 8 mg/dL (6-20); Calcium 8.1 mg/dL (8.5-10.5); Carbon Dioxide 21 mmol/L (22-29); Chloride 105 mmol/L (98-107); Globulin 2.3 g/dL (1.3-4.6); Glomerular Filtration Rate 191.5 mL/min (90-130); Glucose 103 mg/dL (65-115); Osmolality Calculated 283 mOsm/kg (285-295); Potassium 3.4 mmol/L (3.5-5.1); Sodium 137 mmol/L (136-145); Total Bilirubin 0.3 mg/dL (0.15-1.2); Total Protein 5.8 g/dL (6.6-8.7)
== END 2023-01-24 23:40 | disposition home or self-care (01) ==
LOC: OPOB 20:56 → OBGYN 21:01
PROVIDERS: PCP Registered Nurse; Visit Provider Family Medicine
DX: O26.899 Other specified pregnancy related conditions, unspecified trimester (principal); N89.8 Other specified noninflammatory disorders of vagina; R51.9 Headache, unspecified; R42 Dizziness and giddiness; Z3A.00 Weeks of gestation of pregnancy not specified
CPT/HCPCS: 36415; 59025; 76815; 80053; 81003; 82570; 83986; 84156; 84550; 85025; 99211

== ENCOUNTER → 2023-01-31 15:56 | Outpatient (BNVA) | payer BC, MEDICAID, SELFPAY | PROVIDERS: PCP Registered Nurse; Visit Provider Nurse Practitioner Family | DX: B97.89 Other viral agents as the cause of diseases classified elsewhere (principal); J02.8 Acute pharyngitis due to other specified organisms | CPT/HCPCS: 87880 ==

== ENCOUNTER 2023-02-07 10:07 | Outpatient (CLI) | payer BC, MEDICAID, SELFPAY ==
[2023-02-07] VITALS (7 sets, daily range): BP systolic 112–124; BP diastolic 58–79; PULSE 85–126; RESP 18; TEMP 35.8–36.4; O2SAT 97–98; BMI 34.2
[2023-02-07] MEDS: sodium chloride 0.9% 1,000 ML 999 ML IV ×2 (11:05)
== END 2023-02-07 13:05 | disposition home or self-care (01) ==
LOC: OPOB 10:16 → OBGYN 10:17
PROVIDERS: PCP Registered Nurse; Visit Provider Family Medicine
DX: O26.899 Other specified pregnancy related conditions, unspecified trimester (principal); R10.9 Unspecified abdominal pain; R11.2 Nausea with vomiting, unspecified; R19.7 Diarrhea, unspecified; Z3A.00 Weeks of gestation of pregnancy not specified
CPT/HCPCS: 59025; 83986; 99211; J7030

== ENCOUNTER 2023-03-08 03:57 | Inpatient (IN) | payer BC, MEDICAID, SELFPAY ==
[2023-03-08] VITALS (39 sets, daily range): BP systolic 99–190; BP diastolic 53–155; PULSE 60–125; RESP 14–18; TEMP 36.7; O2SAT 96–98; BMI 35.5
[2023-03-08 04:10] LABS: Basophils % 0.4 %; Eosinophils # 0.1 10^3/uL (0.0-0.8); Hemoglobin 13.4 g/dL (11.5-15.3); Lymphocytes # 2.8 10^3/uL (0.8-4.8); Lymphocytes % 24.9 %; Mean Corpuscular HGB Conc 33.5 g/dL (30.0-36.0); Mean Corpuscular Hemoglobin 26.6 pg (28.0-34.0); Mean Corpuscular Volume 79.4 fl (81-99); Mean Platelet Volume 10.7 fL (7.4-10.4); Monocytes # 1.1 10^3/uL (0.2-0.9); Monocytes % 10.2 %; Neutrophils # 7.02 10^3/uL (1.8-7.7); Neutrophils % 63.1 %; Nucleated Red Blood Cells % 0 %; Platelet Count 217 10^3/cmm (130-400); Red Blood Count 5.04 10^6/uL (4.1-5.3); Red Cell Distribution Width 14.2 % (12.1-15.1); White Blood Count 11.1 10^3/uL (4.0-10.0)
[2023-03-08] MEDS: fentaNYL 50 mcg/mL INJ 2mL IVP (04:25)
[2023-03-08] MEDS: ampicillin 2,000 MG in sodium chloride 0.9% (plus) 50 ML 100 MG IV (04:26)
[2023-03-08] MEDS: lactated ringers 1,000 ML 999 ML IV ×2 (04:26→05:32)
[2023-03-08 04:43] LABS: Amphetamines Screen Urine Negative (Negative); Barbiturates Screen Urine Negative (Negative); Benzodiazepines Screen Urine Negative (Negative); Cocaine Screen Urine Negative (Negative); Opiate Screen Urine Negative (Negative); PCP Screen Urine Negative (Negative); THC Screen Urine Negative (Negative)
--- NOTE | 2023-03-08 04:56 | ANES.PREANE2 ---
Pre-Anesthetic Assessment Height/Weight: Height 1.68 m Weight 99.79 kg Pulse Resp BP O2 Del Method 108 H 15 135/85 Room Air 03/08/23 03:49 03/08/23 03:55 03/08/23 03:49 03/08/23 03:59 Preop Diagnosis: labor epidural Familial anesthetic complications: none Was Beta Autumn taken within 24 hours: N/A Was Clonidine taken within 24 hours: N/A Last Intake: 19:00 Social No alcohol and No tobacco Exam alert, oriented x 3, clear to auscultation bilaterally and regular rate & rhythm Airway Submandibular: within normal limits Cervical ROM: within normal limits Mallampati: Class II Dentition: full Pulmonary Asthma CV/HEM Arrythmia (tachycardia) None reported Hepatic None reported GI None reported Metabolic None reported Musc/skel None reported Neuropsych None reported Anesthetic Plan ASA status: 2 Anesthesia: Regional (specify below) (epidural) Medications/Allergies Home Medications Medication Instructions Recorded Confirmed Last Taken Type albuterol sulfate 90 mcg/actuation 2 puff inhalation Q6H PRN 05/16/22 01/31/23 02/05/23 20:00 Rx aerosol inhaler (ProAir HFA) shortness of breath or wheezing #6.7 grams fluticasone propionate 220 See Rx Instructions .Route 05/16/22 01/31/23 02/05/23 20:00 Rx mcg/actuation HFA aerosol inhaler .COMPLEX #12 grams (Flovent HFA) propranolol 40 mg tablet 40 mg PO BEDTIME 30 days #30 tabs 05/16/22 01/31/23 01/18/23 Rx diclofenac sodium 1 % topical gel 2 g topical QID #100 grams 09/07/22 01/31/23 01/18/23 Rx (Voltaren Arthritis Pain) albuterol sulfate 90 mcg/actuation 2 inh inhalation Q4H PRN shortness 11/05/22 01/31/23 02/05/23 20:00 Rx aerosol inhaler (Ventolin HFA) of breath or wheezing #8.5 grams vit no.133-ferrous tab PO 02/07/23 02/06/23 08:00 History fumarate 28 mg-folic acid 800 mcg tablet () Allergies Allergy/AdvReac Type Severity Reaction Status Date / Time No Known Allergies Allergy Verified 01/31/23 15:52 Current Medications Generic Name Dose Route Start Last Admin Trade Name Freq PRN Reason Stop Dose Admin Fentanyl 25 - 100 mcg 03/08/23 04:18 03/08/23 04:25 Fentanyl 50 Mcg/Ml Inj 2ml IVP 25 mcg Q1H PRN Administration SEVERE PAIN Lactated Ringer's 1,000 mls @ 999 mls/hr 03/08/23 03:57 03/08/23 04:26 Lactated Ringers IV 999 mls/hr .Q1H1M PRN Administration See label comments PFSH Anesthesia Medical History Asthma Blood type B- History of hiatal hernia Obesity Oligomenorrhea Tonsillar hypertrophy Surgical History No pertinent past surgical history Family History Mother Cancer, Onset Age: 38 Uterine cancer Grandmother Cancer Maternal grandmother-- uterine cancer Grandfather Diabetes Maternal grandfather Hypertension Maternal grandfather Social History Smoking and tobacco status: never smoked Alcohol intake: former Former alcohol use details: Social before Substance/Drug Use: never Other details last substance use: Denies drug use Adopted: No Caregiver/support person: No Lives independently: No Household members: children service: No Current occupational status: employed Sexually active: Yes Do you think of yourself as: Straight/Heterosexual Current gender identity: Female Female Reproductive History : 6 Data Anesthesia 03/08/23 03:55 Short CBC 03/08/23 Range/Units 03:55 WBC 11.1 H (4.0-10.0) 10^3/uL Hgb 13.4 (11.5-15.3) g/dL Hct 40.0 (37.0-47.0) % MCV 79.4 L (81-99) fl Plt Count 217 (130-400) 10^3/cmm Neut % (Auto) 63.1 % Neut # (Auto) 7.02 (1.8-7.7) 10^3/uL Cardiac Studies: No Data to Display
--- NOTE | 2023-03-08 05:35 | ANES.PROC ---
Anesthesia Procedures Procedure/Date: 03/08/23 Epidural: Time Out Performed: Yes Consents Signed: Procedure Consent and NPO Consent Consent: requested by attending/covering physician, from patient, risks and benefits reviewed, patient agrees to proceed and emergency procedure Lumbar Level: L3-L4 Epidural position: sitting Epidural procedure: sterile prep of area (betadine), 1% lidocaine to numb the area (3ml), 18 g needle, neg for paresthesia, test dose given, 1.5% xylocaine 1:200k epi (3ml/2ml), 0.2% Ropivacaine bolus ml (5ml), placed PCEA, no systemic response, sterile dressing applied, L.U.D. no apparent complications and 0.2% Ropiavacaine @ mls/hr (10ml/hr)
--- NOTE | 2023-03-08 07:08 | PM.OBGYHP ---
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 Patient was 5 cm upon arrival and membranes were intact. Patient had an unremarkable with no complications. labs were unremarkable. However, the patient was GBS positive. Patient was started on antibiotics upon arrival. Present Details : 6 Para: 4 Review of Systems Const: Denies: fever(s), chills or fatigue ENMT: Reports: throat pain and nasal congestion Card: Denies: chest pain, palpitations, swelling of feet/ankles, lightheadedness or dyspnea on exertion GI: Denies: abdominal pain, vomiting or diarrhea Neuro: Reports: headache(s) Medications/Allergies Home Medications Medication Instructions Recorded Confirmed Last Taken Type albuterol sulfate 90 mcg/actuation 2 puff inhalation Q6H PRN 05/16/22 01/31/23 02/05/23 20:00 Rx aerosol inhaler (ProAir HFA) shortness of breath or wheezing #6.7 grams fluticasone propionate 220 See Rx Instructions .Route 05/16/22 01/31/23 02/05/23 20:00 Rx mcg/actuation HFA aerosol inhaler .COMPLEX #12 grams (Flovent HFA) propranolol 40 mg tablet 40 mg PO BEDTIME 30 days #30 tabs 05/16/22 01/31/23 01/18/23 Rx diclofenac sodium 1 % topical gel 2 g topical QID #100 grams 09/07/22 01/31/23 01/18/23 Rx (Voltaren Arthritis Pain) albuterol sulfate 90 mcg/actuation 2 inh inhalation Q4H PRN shortness 11/05/22 01/31/23 02/05/23 20:00 Rx aerosol inhaler (Ventolin HFA) of breath or wheezing #8.5 grams vit no.133-ferrous tab PO 02/07/23 02/06/23 08:00 History fumarate 28 mg-folic acid 800 mcg tablet () Allergies Allergy/AdvReac Type Severity Reaction Status Date / Time No Known Allergies Allergy Verified 01/31/23 15:52 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: Medical History Asthma Blood type B- History of hiatal hernia Obesity Oligomenorrhea Tonsillar hypertrophy Surgical History No pertinent past surgical history Family History Mother Cancer, Onset Age: 38 Uterine cancer Grandmother Cancer Maternal grandmother-- uterine cancer Grandfather Diabetes Maternal grandfather Hypertension Maternal grandfather Social History Smoking and tobacco status: never smoked Alcohol intake: former Former alcohol use details: Social before Substance/Drug Use: never Other details last substance use: Denies drug use Adopted: No Caregiver/support person: No Lives independently: No Household members: children service: No Current occupational status: employed Sexually active: Yes Do you think of yourself as: Straight/Heterosexual Current gender identity: Female Other Female Reproductive History: Hx Age of Menarche: 12 Duration of menses: 6-7 days Cycle Length: irregular Menstrual flow: normal/abnormal: abnormal History History History 6 Term 5 0 Miscarriages/Ectopic 0 Living Children 5 Vitals/I&O/Wt Last Vital Signs Pulse 91 03/08/23 06:24 Resp 15 03/08/23 03:55 BP 187/121 03/08/23 07:04 Pulse Ox 98 03/08/23 05:18 O2 Del Method Room Air 03/08/23 03:59 03/07/23 03/08/23 03/08/23 22:59 06:59 14:59 Intake Total 1000 / 1000 Balance 1000 / 1000 Weight last 48 hrs Weight 99.79 kg Physical Exam Const: COMMON NORMALS: no acute distress and healthy appearing HENMT: COMMON NORMALS: normocephalic and moist oral mucous membranes Resp: COMMON NORMALS: normal respiratory effort Cardio: COMMON NORMALS: no JVD, regular rate and regular rhythm GI: OTHER: Gravid Extremity: COMMON NORMALS: normal to inspection and no clubbing, cyanosis or edema Neuro: COMMON NORMALS: patient oriented x3 and moves all extremities Psych: COMMON NORMALS: mental status grossly normal Skin: COMMON NORMALS: no rashes or lesions noted Urinary Catheter Management: Clement: Cath Placed During This Visit: yes Urinary Catheter Date of Insertion: 03/08/23 Urinary Catheter Time of Insertion: 05:50 Data 03/08/23 03:55 A&P Assessment and plan (1) Rh negative status during : Patient received RhoGAM. Qualifiers: Trimester: first trimester Qualified Code(s): O26.891 - Other specified related conditions, first trimester; Z67.91 - Unspecified blood type, Rh negative (2) Term : Routine labor management (3) GBS (group B Streptococcus carrier), +RV culture, currently : Patient is receiving ampicillin Attestations Medical Necessity Statement*: Admit for labor Coding Level of Care Code Acute Code for Chg Fwd Diagnoses Rh negative status during O26.891; Z67.91 Trimester: first trimester Term Z34.90 GBS (group B Streptococcus carrier), +RV culture, currently O99.820
--- NOTE | 2023-03-08 07:13 | PM.DELIVERY ---
Delivery Note: Date of delivery: March 08, 2023 Pre-delivery diagnoses: Term intrauterine , positive GBS, Rh- Post-delivery diagnoses: Same, viable infant female Procedure: Spontaneous vaginal delivery Delivering Physician: Chris Lopez MD Estimated blood loss (mL): 100 Post Delivery Diagnoses: Rh negative status during : Qualifiers: Trimester: first trimester Qualified Code(s): O26.891 - Other specified related conditions, first trimester; Z67.91 - Unspecified blood type, Rh negative Pre-Delivery Course: The patient presented in active labor. Patient progressed as expected to completion. Patient received epidural prior to delivery. Delivery: Upon arrival patient was completely dilated and membranes were intact. Using amnio hook the membranes were ruptured. Was placed in lithotomy position and started pushing with contractions. After several pushes the was delivered without complication. Infant was placed onto mother's abdomen and after delay the cord was clamped and cut. Placenta was delivered soon after and Pitocin was started. Review of the perineum showed minor labial tear that was not bleeding and did not require repair and perineum was intact. Uterus was firm and bleeding was minimal. Post-Delivery Status: Stable History History History 6 Term 5 0 Miscarriages/Ectopic 0 Living Children 5 A&P Assessment and plan (1) Vaginal delivery: Routine care (2) Rh negative status during : Qualifiers: Trimester: first trimester Qualified Code(s): O26.891 - Other specified related conditions, first trimester; Z67.91 - Unspecified blood type, Rh negative (3) GBS (group B Streptococcus carrier), +RV culture, currently : Patient received 1 dose of ampicillin prior to delivery. Coding Level of Care Code Acute Code for Chg Fwd Diagnoses Vaginal delivery O80 Rh negative status during O26.891; Z67.91 Trimester: first trimester GBS (group B Streptococcus carrier), +RV culture, currently O99.820
[2023-03-08] MEDS: docusate sodium 100 mg Capsule PO ×2 (10:12→17:42)
[2023-03-08] MEDS: ibuprofen 800 mg tablet PO ×3 (10:12→20:51)
[2023-03-08] MEDS: prenatal vitamin Capsule 1 CAP PO (10:12)
[2023-03-08 20:59] LABS: Hematocrit 36.7 % (37.0-47.0); Hemoglobin 12.2 g/dL (11.5-15.3); Mean Corpuscular HGB Conc 33.2 g/dL (30.0-36.0); Mean Corpuscular Volume 81.2 fl (81-99); Mean Platelet Volume 10.7 fL (7.4-10.4); Platelet Count 183 10^3/cmm (130-400); Red Blood Count 4.52 10^6/uL (4.1-5.3); Red Cell Distribution Width 14.4 % (12.1-15.1); White Blood Count 12.6 10^3/uL (4.0-10.0)
[2023-03-09 01:00] VITALS: BP 117/75; PULSE 89; RESP 16; TEMP 36.6; O2SAT 98
[2023-03-09 04:15] VITALS: BP 119/82; PULSE 92; RESP 16; TEMP 36.7; O2SAT 98
--- NOTE | 2023-03-09 07:33 | P.PN_ITS ---
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 Patient has been up ambulating and urinating without difficulty. Pain is well controlled. Has no concerns. Patient states that lochia is appropriate. Labor: Station: +1 Amniotic Membrane Status: Intact Monitor Mode: External Contraction Pattern: Regular Vitals/I&O/Wt Last Vital Signs Temp 98.1 F 03/09/23 04:15 Pulse 92 03/09/23 04:15 Resp 16 03/09/23 04:15 BP 119/82 03/09/23 04:15 Pulse Ox 98 03/09/23 04:15 O2 Del Method Room Air 03/09/23 04:15 Weight last 48 hrs Weight 99.79 kg Physical Exam Const: COMMON NORMALS: no acute distress, patient oriented x3 and healthy appearing HENMT: COMMON NORMALS: normocephalic and moist oral mucous membranes HEAD & SCALP: normocephalic Neck/C-Spine: COMMON NORMALS: no JVD Resp: COMMON NORMALS: normal respiratory effort Cardio: COMMON NORMALS: no JVD, regular rate and regular rhythm RATE: regular rate RHYTHM: regular rhythm GI: COMMON NORMALS: Soft to palpation PALPATION: Yes Soft to palpation Extremity: COMMON NORMALS: normal to inspection and no clubbing, cyanosis or edema Neuro: COMMON NORMALS: patient oriented x3 and moves all extremities Psych: COMMON NORMALS: mental status grossly normal Skin: COMMON NORMALS: no rashes or lesions noted GENERAL SKIN EXAM: no rashes or lesions noted Urinary Catheter Management: Clement: Cath Placed During This Visit: yes Urinary Catheter Date of Insertion: 03/08/23 Urinary Catheter Time of Insertion: 05:50 Data 03/08/23 08:15 A&P Assessment and plan (1) Vaginal delivery: Routine care (2) Rh negative status during : Qualifiers: Trimester: first trimester Qualified Code(s): O26.891 - Other specified related conditions, first trimester; Z67.91 - Unspecified blood type, Rh negative (3) GBS (group B Streptococcus carrier), +RV culture, currently : Patient received 1 dose of ampicillin prior to delivery. Attestations Medical Necessity Statement*: Continue inpatient care. Likely discharge tomorrow Coding Level of Care Code Acute Code for Chg Fwd Diagnoses Vaginal delivery O80 Rh negative status during O26.891; Z67.91 Trimester: first trimester GBS (group B Streptococcus carrier), +RV culture, currently O99.820
[2023-03-09] MEDS: docusate sodium 100 mg Capsule PO ×2 (08:06→18:09)
[2023-03-09] MEDS: ibuprofen 800 mg tablet PO ×3 (08:06→19:59)
[2023-03-09] MEDS: prenatal vitamin Capsule 1 CAP PO (08:06)
[2023-03-09 13:01] VITALS: BP 120/80; PULSE 94; RESP 15; TEMP 36.9
--- NOTE | 2023-03-09 14:25 | ANE.PACU2 ---
Inpatient post-anesthesia follow up: Airway intact: Yes Vital signs: Temperature 98.4 F Pulse Rate 94 Respiratory Rate 15 Blood Pressure 120/80 Pulse Oximetry 98 Oxygen Delivery Me thod Room Air Oxygen Flow Rate Fraction of Inspir ed Oxygen Hydration adequate: Yes Nausea and vomiting: Yes Pain level: 1 Mental status: Baseline
[2023-03-09 22:00] VITALS: BP 121/77; PULSE 98; RESP 16; TEMP 36.7; O2SAT 94
[2023-03-10] MEDS: calcium carbonate 500 mg Chew Tablet 1000 MG PO (01:06)
[2023-03-10 04:02] VITALS: BP 118/78; PULSE 98; RESP 16; TEMP 36.6; O2SAT 99
[2023-03-10 06:11] VITALS: BP 114/77; PULSE 94; RESP 16; TEMP 36.8; O2SAT 97
[2023-03-10 06:37] VITALS: BP 108/71; PULSE 92; RESP 16; TEMP 36.9; O2SAT 97
[2023-03-10] MEDS: docusate sodium 100 mg Capsule PO (08:10)
[2023-03-10] MEDS: ibuprofen 800 mg tablet PO (08:10)
[2023-03-10] MEDS: prenatal vitamin Capsule 1 CAP PO (08:10)
--- NOTE | 2023-03-10 08:37 | P.DS_ITS ---
Discharge Providers EMERGENCY COMMUNICATIONS DISPATCHER Date of Admission: 03/08/23 03:57 Date of Discharge: 03/10/23 Attending Provider at Admission: Jules Lopez MD Attending Provider at Discharge: Jules Lopez MD Primary Care Provider: TYSHAWN Villagran Diagnoses at Discharge Discharge Diagnosis (1) Vaginal delivery: Status: Acute (2) Rh negative status during : Status: Acute Qualifiers: Trimester: first trimester Qualified Code(s): O26.891 - Other specified related conditions, first trimester; Z67.91 - Unspecified blood type, Rh negative (3) GBS (group B Streptococcus carrier), +RV culture, currently : Status: Acute Reason for Visit Reason for Visit: Abdominal pain Brief History: Labor Hospital Course Hospital Course This is a an active labor. Patient progressed as expected to completion. Delivered a viable infant female without any difficulty. care was unremarkable. Lochia is appropriate and pain is well controlled. Information Peripartum Data: Delivery Method: Vaginal Laceration description: None Episiotomy description: None complications: none Physical Exam Const: COMMON NORMALS: no acute distress, patient oriented x3 and healthy appearing HENMT: COMMON NORMALS: normocephalic and moist oral mucous membranes HEAD & SCALP: normocephalic Neck/C-Spine: COMMON NORMALS: no JVD Resp: COMMON NORMALS: normal respiratory effort Cardio: COMMON NORMALS: no JVD, regular rate and regular rhythm RATE: regular rate RHYTHM: regular rhythm GI: COMMON NORMALS: Soft to palpation PALPATION: Yes Soft to palpation Extremity: COMMON NORMALS: normal to inspection and no clubbing, cyanosis or edema Neuro: COMMON NORMALS: patient oriented x3 and moves all extremities Psych: COMMON NORMALS: mental status grossly normal Skin: COMMON NORMALS: no rashes or lesions noted GENERAL SKIN EXAM: no rashes or lesions noted Urinary Catheter Management: Clement: Cath Placed During This Visit: yes Urinary Catheter Date of Insertion: 03/08/23 Urinary Catheter Time of Insertion: 05:50 History History History 6 Term 6 0 Miscarriages/Ectopic 0 Living Children 6 Discharge Data Studies Completed and Pending Laboratory Results WBC 12.6 10^3/uL (4.0-10.0) H 03/08/23 08:15 RBC 4.52 10^6/uL (4.1-5.3) 03/08/23 08:15 Hgb 12.2 g/dL (11.5-15.3) 03/08/23 08:15 Hct 36.7 % (37.0-47.0) L 03/08/23 08:15 MCV 81.2 fl (81-99) 03/08/23 08:15 MCH 27.0 pg (28.0-34.0) L 03/08/23 08:15 MCHC 33.2 g/dL (30.0-36.0) 03/08/23 08:15 RDW 14.4 % (12.1-15.1) 03/08/23 08:15 Plt Count 183 10^3/cmm (130-400) 03/08/23 08:15 MPV 10.7 fL (7.4-10.4) H 03/08/23 08:15 Neut % (Auto) 63.1 % 03/08/23 03:55 Lymph % (Auto) 24.9 % 03/08/23 03:55 [place] % (Auto) 10.2 % 03/08/23 03:55 Eos % (Auto) 1.0 % 03/08/23 03:55 Baso % (Auto) 0.4 % 03/08/23 03:55 Neut # (Auto) 7.02 10^3/uL (1.8-7.7) 03/08/23 03:55 Lymph # (Auto) 2.8 10^3/uL (0.8-4.8) 03/08/23 03:55 [place] # (Auto) 1.1 10^3/uL (0.2-0.9) H 03/08/23 03:55 Eos # (Auto) 0.1 10^3/uL (0.0-0.8) 03/08/23 03:55 Baso # (Auto) 0.0 10^3/uL (0.0-0.1) 03/08/23 03:55 Nucleated RBC % (auto) 0 % 03/08/23 03:55 Nucleated RBCs # 0.0 /100WBC 03/08/23 03:55 Urine Opiates Screen Negative ng/mL (Negative) 03/08/23 03:48 Ur Barbiturates Screen Negative ng/mL (Negative) 03/08/23 03:48 Ur Phencyclidine Scrn Negative ng/mL (Negative) 03/08/23 03:48 Ur Amphetamines Screen Negative ng/mL (Negative) 03/08/23 03:48 U Benzodiazepines Scrn Negative ng/mL (Negative) 03/08/23 03:48 Urine Cocaine Screen Negative ng/mL (Negative) 03/08/23 03:48 U Marijuana (THC) Screen Negative ng/mL (Negative) 03/08/23 03:48 Blood Type B Negative 03/08/23 03:55 Rho(D) Type Negative 03/08/23 03:55 Antibody Screen Positive 03/08/23 03:55 Antibody Identification Anti-D 03/08/23 03:55 Screen Negative (Negative) 03/08/23 08:51 Vitals Last Vital Signs Temp 98.5 F 03/10/23 06:37 Pulse 92 03/10/23 06:37 Resp 16 03/10/23 06:37 BP 108/71 03/10/23 06:37 Pulse Ox 97 03/10/23 06:37 O2 Del Method Room Air 03/10/23 04:02 Discharge Plan Discharge Patient Disposition: Home Condition: Stable Prescriptions: Continued Flovent HFA 220 mcg/actuation HFA aerosol inhaler See Rx Instructions .ROUTE .COMPLEX Qty: 12 5RF Dose Instruction: INHALE 1 PUFF BY MOUTH TWICE DAILY Rx Instructions: INHALE 1 PUFF BY MOUTH TWICE DAILY albuterol sulfate [ProAir HFA] 90 mcg/actuation HFA aerosol inhaler 2 puff INHALATION Q6H PRN (Reason: shortness of breath or wheezing) Qty: 6.7 5RF propranolol 40 mg tablet 40 mg PO BEDTIME 30 Days Qty: 30 0RF diclofenac sodium [Voltaren Arthritis Pain] 1 % gel 2 g topical QID Qty: 100 0RF Rx Instructions: apply to area of pain albuterol sulfate [Ventolin HFA] 90 mcg/actuation HFA aerosol inhaler 2 inh inhalation Q4H PRN (Reason: shortness of breath or wheezing) Qty: 8.5 0RF 28-800 mg-mcg Tablet PO Discharge Orders: Discharge Order (Routine); Ordered 03/10/23 Ordered By: Jules Lopez Referrals: Jules Lopez MD [Physician] - 6 Weeks Discharge Diet: Usual diet Discharge Activity: Limit activity as instructed Patient Instructions: Depression (DC), Opioid Safety (DC), Preeclampsia and Eclampsia After Delivery (GEN), Hemorrhage (DC), OB Discharge Report, OB Food/Drug Interaction Guide, OB Care at Home, Opioid Safety, Abnormal Bleeding Discharge Attestations EMERGENCY COMMUNICATIONS DISPATCHER Time Spent in Discharge Care*: less than 30 min Coding Level of Care Code Acute Code for Chg Fwd Diagnoses Vaginal delivery O80 Rh negative status during O26.891; Z67.91 Trimester: first trimester GBS (group B Streptococcus carrier), +RV culture, currently O99.820
[2023-03-10 10:24] VITALS: BP 118/64; PULSE 75; RESP 16; TEMP 37
== END 2023-03-10 10:27 | disposition home or self-care (01) | DRG 807 ==
LOC: OBGYN 04:00 → OPOB 03-09 07:15
PROVIDERS: Admitting Provider Family Medicine; PCP Registered Nurse; Visit Provider Family Medicine
DX: O99.824 Streptococcus B carrier state complicating childbirth (principal); Z37.0 Single live birth; Z3A.39 39 weeks gestation of pregnancy; O70.0 First degree perineal laceration during delivery; J45.909 Unspecified asthma, uncomplicated; O99.52 Diseases of the respiratory system complicating childbirth; O26.893 Other specified pregnancy related conditions, third trimester; Z67.21 Type B blood, Rh negative
CPT/HCPCS: 36415; 59025; 59409; 80306; 80503; 85025; 85027; 85460; 86850; 86870; 86900; 90384; 96374; 99211; J0290; J2795; J3010; J7040; J7120

== ENCOUNTER → 2023-08-23 11:01 | Outpatient (BNVA) | payer BC, MEDICAID, SELFPAY | PROVIDERS: PCP Registered Nurse; Visit Provider Registered Nurse | DX: R10.2 Pelvic and perineal pain (principal) | CPT/HCPCS: 81000 ==

== ENCOUNTER → 2024-04-29 11:38 | Outpatient (BNVA) | payer BC, MEDICAID, SELFPAY | PROVIDERS: PCP Registered Nurse; Visit Provider Registered Nurse | DX: N76.0 Acute vaginitis (principal); L65.9 Nonscarring hair loss, unspecified; B96.89 Other specified bacterial agents as the cause of diseases classified elsewhere | CPT/HCPCS: 80053; 81000; 82607; 84443; 85025 ==

== ENCOUNTER → 2024-09-08 09:18 | Outpatient (BNVA) | payer BC, MEDICAID, SELFPAY | PROVIDERS: PCP Registered Nurse; Visit Provider Registered Nurse | DX: Z00.00 Encounter for general adult medical examination without abnormal findings; Z72.51 High risk heterosexual behavior | CPT/HCPCS: 81025; 87491; 87591; 87661; 88175 ==